=== PATIENT | male | born 1975 | race Caucasian/White ===

== ENCOUNTER 2016-09-14 09:39 | Emergency (ER) | payer OTHER ==
[2016-09-14 10:05] VITALS: BP 133/71
--- NOTE | 2016-09-14 10:45 | UC ---
Iliana Trammell Salem, scribed for Angela Lanier MD on 09/14/16 at 1039 . Psychiatric Complaint HPI - HPI Summary HPI Summary: Patient is a 41 y/o male who presents to the s/p a panic attack since earlier today. He states that he has had a hx of intermittent anxiety for 15 years and has been seeing Dr. Dennis at [facility]. Pt was prescribed Zyprexa x many years with good effect, but reports it is no longer effective. Dr. Dennis recommended that he sees a therapist and while he received a phone call from the therapist, he has not called them back because he did not think it would be helpful. Pt states needs a different medication. Denies self medicating. He states that he has not informed Dr. Dennis of this , but has an appointment to see him on September 22. 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 Episode lasted approximately 30 minutes and he states he feels better now. Pt states that panic attacks have been worsening with time and that he has been having approximately a panic attack a day for the last month. AT time of eval, pt without any complaints - no cp, sob, abd pain, no nausea, He denies missing or any changes in his medication or at work. However, pt states that he has changed to morning shifts at work fall 2015 and has been feeling like he is pulling everyone elses weight. He states that he will consider following up with the therapist, but would like an appointment at [facility] in order to get his medication changed, if it cannot be changed here. Pt denies any other changes to life. Denies substance use. No SI/HI. Pt took Motrin over a month ago for cold sx. Patients medication reviewed this visit. - History Of Current Complaint Chief Complaint: UCAlteredMentalStatus Stated Complaint: ANXIETY-CHANGE MEDS? Time Seen by Provider: 09/14/16 10:14 Hx Obtained From: Patient Onset/Duration: Gradual Onset, Lasting Hours, Still Present Timing: Intermittent Episode Lasting Severity Initially: Moderate Severity Currently: Moderate Character: Anxious Aggravating Factor(s): Nothing Alleviating Factor(s): Nothing Related History: Positive For: Prior Psychiatric Issues - Allergies/Home Medications Allergies/Adverse Reactions: Allergies Allergy/AdvReac Type Severity Reaction Status Date / Time No Known Allergies Allergy Verified 09/14/16 10:05 PMH/Surg Hx/FS Hx/Imm Hx Previously Healthy: No Endocrine History Of: Denies: Diabetes, Thyroid Disease Cardiovascular History Of: Denies: Cardiac Disorders, Hypertension Respiratory History Of: Denies: COPD, Asthma GI/ History Of: Denies: Ulcer Psychological History Of: Reports: Anxiety - Surgical History Surgical History: Yes - Cyst removal from tail bone in 2012. Surgery Procedure, Year, and Place: cyst removed from tailbone. - Family History Known Family History: Negative: Hypertension, Diabetes - Social History Occupation: Employed Full-time Alcohol Use: None Substance Use Type: None, Marijuana - Former - 1 year ago. Smoking Status (MU): Former Smoker Review of Systems Constitutional: Negative Skin: Negative Eyes: Negative ENT: Negative Respiratory: Shortness Of Breath - with panic attack. Cardiovascular: Negative Gastrointestinal: Negative Genitourinary: Negative Motor: Negative Neurovascular: Negative Musculoskeletal: Negative Neurological: Negative Psychological: Anxious - Panic attack - resolved All Other Systems Reviewed And Are Negative: Yes Physical Exam Triage Information Reviewed: Yes Appearance: Well-Appearing, No Pain Distress, Well-Nourished Vital Signs: Initial Vital Signs Temp 98.6 F 09/14/16 09:56 Pulse 72 09/14/16 09:56 Resp 18 09/14/16 09:56 BP 133/71 09/14/16 09:56 Pulse Ox 97 09/14/16 09:56 Vital Signs Reviewed: Yes Eye Exam: Normal Eyes: Positive: Conjunctiva Clear ENT Exam: Normal ENT: Positive: Normal ENT inspection, Hearing grossly normal, Pharynx normal, TMs normal Dental Exam: Normal Neck exam: Normal Neck: Positive: Supple, Nontender, No Lymphadenopathy Respiratory Exam: Normal Respiratory: Positive: Chest non-tender, Lungs clear, Normal breath sounds, No respiratory distress, No accessory muscle use Cardiovascular Exam: Normal Cardiovascular: Positive: RRR, No Murmur, Pulses Normal Abdominal Exam: Normal Abdomen Description: Positive: Nontender, No Organomegaly, Soft Bowel Sounds: Positive: Present Musculoskeletal Exam: Normal Musculoskeletal: Positive: Strength Intact Neurological Exam: Normal Neurological: Positive: Alert, Muscle Tone Normal Psychological Exam: Normal Skin Exam: Normal Psych Complaint Course/Dx - Course Course Of Treatment: Pt presents s/p panic attack - no complaints at present. Pt with increased frequency of anxiety. Pt feels he needs a medication change. Explained ot pt would not change medication through UC - would need to be done with the guidance of his mental health counselor. PT comfortable and in agreement with plan. PT is followed at [facility] - has not called today. I spoke with [facility] - made pt a crisis appt today with Mr. Dick Brandon- pt's counselor. Pt missed appt with Dr. Dennis in August - scheduled in September. Appt 245 today. Pt comfortable and in agreement with plan. PT denies SI/HI. Will discharge to appt. work note - Differential Dx/Diagnosis Provider Diagnoses: anxiety - Physician Notifications Discussed Patient Care With: Mental Health @ 1043. Has an appointment at 1445 today with the counselor he sees there. Pt missed his appointment in August 2016. Discharge - Discharge Plan Condition: Stable Disposition: HOME Patient Education Materials: Anxiety (ED), Panic Attack (ED) Forms: *Work Release Referrals: Drea Ty MD [Primary Care Provider] - Additional Instructions: - stay well hydrated. Drink plenty of non- alcoholic, non-caffinated beverages - get plenty of restful sleep - You have an appointment TODAY at 2:45pm with Mr. Dick Brandon - it is very important that you keep this appointment. You should discuss medication adjustments at this appointment - call 911 or return to the emergency department if you develop any thoughts of hurting yourself or someone else The documentation as recorded by the Iliana hernandez Salem accurately reflects the service I personally performed and the decisions made by me, Angela Lanier MD.
== END 2016-09-14 11:06 | disposition home or self-care (01) ==
LOC: UCEAST 09:39
DX: F41.9 Anxiety disorder, unspecified (principal)
CPT/HCPCS: 99211; G0463

== ENCOUNTER 2018-09-06 22:41 | Emergency (ER) | payer OTHER ==
[2018-09-07] MEDS ORDERED: Meclizine TAB* 12.5 MG PO ONE (01:00)
[2018-09-07 01:08] LABS: ABS Basophils 0 10^3/ul (0-0.2); ABS Eosinophils 0.5 10^3/ul (0-0.6); ABS Lymphocytes 3.1 10^3/ul (1.0-4.8); ABS Monocytes 0.8 10^3/ul (0-0.8); ABS Neutrophils 5.4 10^3/ul (1.5-7.7); ABS Nucleated RBC 0 10^3/ul; Eosinophil % 4.8 %; Hematocrit 44 % (36-46); Hemoglobin 15.1 g/dL (14.0-18.0); Lymphocyte % 31.9 %; Mean Corpuscular HGB Conc 34 g/dL (31-36); Mean Corpuscular Hemoglobin 31 pg (27-31); Mean Corpuscular Volume 90 fL (80-94); Mean Platelet Volume 6.9 fL (7.4-10.4); Nucleated Red Blood Cells % 0.1; Platelet Count 341 10^3/uL (150-450); Red Blood Count 4.91 10^6 /uL (4.18-5.48); Red Cell Distribution Width 13 % (10.5-15); White Blood Count 9.8 10^3/uL (3.5-10.8)
[2018-09-07 01:11] LABS: Albumin 4.5 g/dL (3.2-5.2); Albumin/Globulin Ratio 1.7 (1-3); BUN/Creatinine Ratio 11.6 (8-20); Calcium 9.8 mg/dL (8.6-10.3); EGFR African American 105.7 (>60); EGFR Non-African American 87.4 (>60); Globulin 2.7 g/dL (2-4); Potassium 3.6 mmol/L (3.5-5.0); Total Bilirubin 0.4 mg/dL (0.2-1.0); Total Protein 7.2 g/dL (6.4-8.9)
--- NOTE | 2018-09-07 01:51 | ED ---
Dizziness - HPI Summary HPI Summary: The patient is a 43 year old male who is presenting to the [facility] with c/o of dizziness and lightheadedness. The patient denies room spinning characteristic of the dizziness episode and states that dizziness spell was more similar to a near-syncopal episode. He describes this episode, one in which he almost passed out. The duration of the symptoms have been nearly 3 weeks. Patient had previously seen his primary care physician for similar symptoms and states that he had been diagnosed with vertigo and was given Meclizine. The medicine did alleviate the symptoms. He had stopped taking the medication after a few days due to the reported drowsiness he felt after taking the medication for a few days. Patient also has PMHx of anxiety and depression. Patient also reports of chest pain that is on the left side which have been occurring for the past few days and the last episode of the chest pain was yesterday afternoon. - History Of Current Complaint Chief Complaint: EDDizziness Stated Complaint: LIGHT HEADED, CHEST PAIN PER PT Time Seen by Provider: 09/07/18 00:48 Hx Obtained From: Patient Character: Lightheaded, Dizzy Aggravating Factor(s): Nothing Alleviating Factor(s): Nothing Associated Signs And Symptoms: Positive: Chest Pain - Allergies/Home Medications Allergies/Adverse Reactions: Allergies Allergy/AdvReac Type Severity Reaction Status Date / Time No Known Allergies Allergy Verified 09/06/18 22:48 PMH/Surg Hx/FS Hx/Imm Hx Endocrine/Hematology History: Denies: Hx Diabetes, Hx Thyroid Disease Cardiovascular History: Denies: Hx Hypertension Respiratory History: Denies: Hx Asthma, Hx Chronic Obstructive Pulmonary Disease (COPD) GI History: Denies: Hx Ulcer Psychiatric History: Reports: Hx Anxiety - Surgical History Surgery Procedure, Year, and Place: cyst removed from tailbone. Infectious Disease History: No Infectious Disease History: Denies: Hx Clostridium Difficile, Hx Hepatitis, Hx Human Immunodeficiency Virus (HIV), Hx of Known/Suspected MRSA, Hx Shingles, Hx Tuberculosis, Hx Known/ Suspected VRE, Traveled Outside the [place] in Last 30 Days - Family History Known Family History: Negative: Hypertension, Diabetes - Social History Alcohol Use: None Substance Use Type: Reports: None Smoking Status (MU): Former Smoker Review of Systems Constitutional: Negative Eyes: Negative ENT: Negative Positive: Chest Pain Respiratory: Negative Gastrointestinal: Negative Genitourinary: Negative Musculoskeletal: Negative Skin: Negative Neurological: Other - lightheadedness; and dizziness Psychological: Normal All Other Systems Reviewed And Are Negative: Yes Physical Exam - Summary Physical Exam Summary: VITAL SIGNS: Reviewed. GENERAL: Patient is a well-developed and nourished (MALE) who is lying comfortable in the stretcher. Patient is not in any acute respiratory distress. HEAD AND FACE: No signs of trauma. No ecchymosis, hematomas or skull depressions. No sinus tenderness. EYES: PERRLA, EOMI x 2, No injected conjunctiva, no nystagmus. EARS: Hearing grossly intact. Ear canals and tympanic membranes are within normal limits. MOUTH: Oropharynx within normal limits. NECK: Supple, trachea is midline, no adenopathy, no JVD, no carotid bruit, no c- spine tenderness, neck with full ROM. CHEST: Symmetric, no tenderness at palpation LUNGS: Clear to auscultation bilaterally. No wheezing or crackles. CVS: Regular rate and rhythm, S1 and S2 present, no murmurs or gallops appreciated. ABDOMEN: Soft, non-tender. No signs of distention. No rebound no guarding, and no masses palpated. Bowel sounds are normal. EXTREMITIES: FROM in all major joints, no edema, no cyanosis or clubbing. NEURO: Alert and oriented x 3. No acute neurological deficits. Speech is normal and follows commands. SKIN: Dry and warm Triage Information Reviewed: Yes Vital Signs On Initial Exam: Initial Vitals Temp Pulse Resp BP Pulse Ox 36.4 C 72 19 139/80 99 09/06/18 22:44 09/06/18 22:44 09/06/18 22:44 09/06/18 22:44 09/06/18 22:44 Vital Signs Reviewed: Yes Diagnostics - Vital Signs Vital Signs Temp Pulse Resp BP Pulse Ox 09/06/18 22:44 36.4 C 72 19 139/80 99 - Laboratory Lab Results: Lab Results 09/07/18 09/07/18 Range/Units 00:31 00:32 WBC 9.8 (3.5-10.8) 10^3/uL RBC 4.91 (4.18-5.48) 10^6 /uL Hgb 15.1 (14.0-18.0) g/dL Hct 44 (36-46) % MCV 90 (80-94) fL MCH 31 (27-31) pg MCHC 34 (31-36) g/dL RDW 13 (10.5-15) % Plt Count 341 (150-450) 10^3/uL MPV 6.9 L (7.4-10.4) fL Neut % (Auto) 55.3 % Lymph % (Auto) 31.9 % [place] % (Auto) 7.6 % Eos % (Auto) 4.8 % Baso % (Auto) 0.4 % Absolute Neuts (auto) 5.4 (1.5-7.7) 10^3/ul Absolute Lymphs (auto) 3.1 (1.0-4.8) 10^3/ul Absolute Monos (auto) 0.8 (0-0.8) 10^3/ul Absolute Eos (auto) 0.5 (0-0.6) 10^3/ul Absolute Basos (auto) 0 (0-0.2) 10^3/ul Absolute Nucleated RBC 0 10^3/ul Nucleated RBC % 0.1 Sodium 139 (135-145) mmol/L Potassium 3.6 (3.5-5.0) mmol/L Chloride 101 (101-111) mmol/L Carbon Dioxide 33 H (22-32) mmol/L Anion Gap 5 (2-11) mmol/L BUN 11 (6-24) mg/dL Creatinine 0.95 (0.67-1.17) mg/dL Est GFR ( Amer) 105.7 (>60) Est GFR (Non-Af Amer) 87.4 (>60) BUN/Creatinine Ratio 11.6 (8-20) Glucose 77 (70-100) mg/dL Calcium 9.8 (8.6-10.3) mg/dL Total Bilirubin 0.40 (0.2-1.0) mg/dL AST 24 (13-39) U/L ALT 24 (7-52) U/L Alkaline Phosphatase 67 (34-104) U/L Total Protein 7.2 (6.4-8.9) g/dL Albumin 4.5 (3.2-5.2) g/dL Globulin 2.7 (2-4) g/dL Albumin/Globulin Ratio 1.7 (1-3) Result Diagrams: 09/07/18 00:31 09/07/18 00:32 Lab Statement: Any lab studies that have been ordered have been reviewed, and results considered in the medical decision making process. - EKG 0109 EKG Rhythm: Sinus Rhythm - 70 bpm Summary of EKG Findings: An EKG at 0109 reveals sinus 70 bpm. Normal axis; Normal intervals; No ischemic changes. Dizzy Course/Dx - Course Course Of Treatment: The patient is a 43 year old male who is presenting to the [facility] with c/o of dizziness and lightheadedness. The patient was given an EKG in the [facility]. We reviewed his lab work and blood work as well. Antivert has been taken 3 weeks ago which had improved his symptoms, but the patient had stopped taking the antivert due to a reported drowsiness. Patient was given Antivert in the [facility] and he reports feeling better. The patient will be discharged with a dx of dizziness. We recommended taking antivert as needed. - Diagnoses Provider Diagnoses: Dizziness Discharge - Sign-Out/Discharge Documenting (check all that apply): Patient Departure - discharge Home Patient Received Moderate/Deep Sedation with Procedure: No - Discharge Plan Condition: Stable Disposition: HOME Patient Education Materials: Vertigo (ED) Referrals: Truman BAER,Balbir Rehman [Primary Care Provider] - 1 Day Additional Instructions: Continue Antivert as needed for dizziness. - Attestation Statements Document Initiated by Scribe: Yes Documenting Scribe: Shane Contreras Provider For Whom Scribe is Documenting (Include Credential): Dr. Juventino Jo Scribe Attestation: Shane Trammell, scribed for Dr. Juventino Jo on 09/07/18 at 0517. Status of Scribe Document: Ready
[2018-09-07 03:46] VITALS: BP 119/78
== END 2018-09-07 03:46 | disposition home or self-care (01) ==
LOC: ED 22:41
DX: R42 Dizziness and giddiness (principal); Z87.891 Personal history of nicotine dependence
CPT/HCPCS: 36415; 80053; 85025; 93005; 99282; A9270-GY

== ENCOUNTER 2019-06-26 10:57 | Emergency (ER) | payer OTHER ==
[2019-06-26 11:39] LABS: ABS Eosinophils 0.1 10^3/ul (0-0.6); ABS Lymphocytes 1.9 10^3/ul (1.0-4.8); ABS Monocytes 0.7 10^3/ul (0-0.8); Eosinophil % 0.5 %; Hematocrit 45 % (42-52); Hemoglobin 15.4 g/dL (14.0-18.0); Lymphocyte % 18.1 %; Mean Corpuscular HGB Conc 34 g/dL (31-36); Mean Corpuscular Hemoglobin 31 pg (27-31); Mean Corpuscular Volume 92 fL (80-94); Mean Platelet Volume 6.7 fL (7.4-10.4); Nucleated Red Blood Cells % 0.1; Platelet Count 327 10^3/uL (150-450); Red Blood Count 4.91 10^6 /uL (4.18-5.48); Red Cell Distribution Width 14 % (10-15); White Blood Count 10.7 10^3/uL (3.5-10.8)
[2019-06-26 11:58] LABS: Albumin 4.7 g/dL (3.2-5.2); Albumin/Globulin Ratio 1.6 (1-3); BUN/Creatinine Ratio 12.2 (8-20); Calcium 9.6 mg/dL (8.6-10.3); EGFR Non-African American 92.5 (>60); Potassium 3.8 mmol/L (3.5-5.0); Total Bilirubin 0.7 mg/dL (0.2-1.0); Total Protein 7.7 g/dL (6.4-8.9)
--- NOTE | 2019-06-26 15:27 | ED ---
Abdominal Pain/Male - HPI Summary HPI Summary: The patient is a 44 year-old male presenting to [facility] with a chief complaint of LLQ and suprapubic abdominal pain onset yesterday. He reports lower abdominal pain worst in the LLQ that radiates into the groin and testicles. The aching pain is rated /10 in severity, and is aggravated with bending. He endorses subjective fever, diaphoresis, and nausea. He denies any vomiting, diarrhea, hematochezia, back pain, dysuria, burning with urination, or swelling or erythema of the scrotum. Symptoms currently rated 5/10 in severity. His last BM was yesterday and it was normal. No history of abdominal surgeries. Past medical history significant for cyst on tailbone. Former smoker, no EtOH, no substance use. Medications reviewed. Allergies noted. - History of Current Complaint Chief Complaint: EDAbdPain Stated Complaint: STOMACH PAIN PER PT Time Seen by Provider: 06/26/19 15:20 Hx Obtained From: Patient Onset/Duration: Lasting Hours, Still Present Timing: Constant Severity Initially: Mild Severity Currently: Moderate Pain Intensity: 5 Pain Scale Used: 0-10 Numeric Location: Discrete At: LLQ, Suprapubic Radiates: Yes Radiates to: Inguinal, Other - testicles Aggravating Factor(s): Movement - bending Alleviating Factor(s): Nothing Associated Signs And Symptoms: Positive: Diaphoresis, Fever, Nausea. Negative: Blood in Stool, Urinary Symptoms, Vomiting, Diarrhea, Other - scrotal swelling or redness - Allergies/Home Medications Allergies/Adverse Reactions: Allergies Allergy/AdvReac Type Severity Reaction Status Date / Time No Known Allergies Allergy Verified 09/06/18 22:48 Home Medications: Home Medications ClomiPRAMINE (NF) [Clomipramine (NF)] 150 mg PO BEDTIME 06/26/19 [History Confirmed 06/26/19] Escitalopram * [Lexapro *] 20 mg PO BEDTIME 06/26/19 [History Confirmed 06/26/19 ] Montelukast Sodium TAB* [Singulair TAB*] 10 mg PO DAILY 06/26/19 [History Confirmed 06/26/19] OLANzapine TAB* [Zyprexa 10 MG TAB*] 10 mg PO BEDTIME 06/26/19 [History Confirmed 06/26/19] clonazePAM TAB(*) [KlonoPIN TAB(*)] 0.25 - 0.5 mg PO TID PRN 06/26/19 [History Confirmed 06/26/19] PMH/Surg Hx/FS Hx/Imm Hx Endocrine/Hematology History: Denies: Hx Diabetes, Hx Thyroid Disease Cardiovascular History: Denies: Hx Hypertension Respiratory History: Denies: Hx Asthma, Hx Chronic Obstructive Pulmonary Disease (COPD) GI History: Denies: Hx Ulcer Psychiatric History: Reports: Hx Anxiety - Surgical History Surgical History: Yes Surgery Procedure, Year, and Place: cyst removed from tailbone. Infectious Disease History: No Infectious Disease History: Denies: Hx Clostridium Difficile, Hx Hepatitis, Hx Human Immunodeficiency Virus (HIV), Hx of Known/Suspected MRSA, Hx Shingles, Hx Tuberculosis, Hx Known/ Suspected VRE, Traveled Outside the [place] in Last 30 Days - Family History Known Family History: Negative: Hypertension, Diabetes - Social History Alcohol Use: None Hx Substance Use: No Substance Use Type: Reports: None Hx Tobacco Use: Yes Smoking Status (MU): Former Smoker Review of Systems Positive: Skin Diaphoresis Positive: Abdominal Pain - LLQ and suprapubic, Nausea. Negative: Vomiting, Diarrhea, Other - hematochezia Positive: pain - groin pain radiating into testicles. Negative: burning, dysuria, other - scrotal swelling or erythema Negative: Myalgia - back All Other Systems Reviewed And Are Negative: Yes Physical Exam - Summary Physical Exam Summary: Constitutional: Well-developed, Well-nourished, Alert. (-) Distressed Skin: Warm, Dry HENT: Normocephalic; Atraumatic Eyes: Conjunctiva normal Neck: Musculoskeletal ROM normal neck. (-) JVD, (-) Stridor, (-) Tracheal deviation Cardio: Rhythm regular, rate normal, Heart sounds normal; Intact distal pulses; The pedal pulses are 2+ and symmetric. Radial pulses are 2+ and symmetric. (-) Murmur Pulmonary/Chest wall: Effort normal. (-) Respiratory distress, (-) Wheezes, (-) Rales Abd: Soft, (+) Mild tenderness of the suprapubic region/LLQ, (-) Flank tenderness, (-) Distension, (-) Guarding, (-) Rebound Musculoskeletal: (-) Edema Lymph: (-) Cervical adenopathy Neuro: Alert, Oriented x3 Psych: Mood and affect Normal Triage Information Reviewed: Yes Vital Signs On Initial Exam: Initial Vitals Temp Pulse Resp BP Pulse Ox 98.4 F 84 18 144/86 98 06/26/19 10:59 06/26/19 10:59 06/26/19 10:59 06/26/19 10:59 06/26/19 10:59 Vital Signs Reviewed: Yes Procedures - Sedation Patient Received Moderate/Deep Sedation with Procedure: No Diagnostics - Vital Signs Vital Signs Temp Pulse Resp BP Pulse Ox 06/26/19 12:53 99.9 F 82 18 134/77 98 06/26/19 10:59 98.4 F 84 18 144/86 98 - Laboratory Lab Results: Lab Results 06/26/19 06/26/19 Range/Units 11:31 11:31 WBC 10.7 (3.5-10.8) 10^3/uL RBC 4.91 (4.18-5.48) 10^6 /uL Hgb 15.4 (14.0-18.0) g/dL Hct 45 (42-52) % MCV 92 (80-94) fL MCH 31 (27-31) pg MCHC 34 (31-36) g/dL RDW 14 (10-15) % Plt Count 327 (150-450) 10^3/uL MPV 6.7 L (7.4-10.4) fL Neut % (Auto) 74.3 % Lymph % (Auto) 18.1 % [place] % (Auto) 6.7 % Eos % (Auto) 0.5 % Baso % (Auto) 0.4 % Absolute Neuts (auto) 8.0 H (1.5-7.7) 10^3/ul Absolute Lymphs (auto) 1.9 (1.0-4.8) 10^3/ul Absolute Monos (auto) 0.7 (0-0.8) 10^3/ul Absolute Eos (auto) 0.1 (0-0.6) 10^3/ul Absolute Basos (auto) 0.0 (0-0.2) 10^3/ul Absolute Nucleated RBC 0.0 10^3/ul Nucleated RBC % 0.1 Sodium 137 (135-145) mmol/L Potassium 3.8 (3.5-5.0) mmol/L Chloride 100 L (101-111) mmol/L Carbon Dioxide 31 (22-32) mmol/L Anion Gap 6 (2-11) mmol/L BUN 11 (6-24) mg/dL Creatinine 0.90 (0.67-1.17) mg/dL Est GFR ( Amer) 112.0 (>60) Est GFR (Non-Af Amer) 92.5 (>60) BUN/Creatinine Ratio 12.2 (8-20) Glucose 98 (70-100) mg/dL Calcium 9.6 (8.6-10.3) mg/dL Total Bilirubin 0.70 (0.2-1.0) mg/dL AST 27 (13-39) U/L ALT 20 (7-52) U/L Alkaline Phosphatase 66 (34-104) U/L Total Protein 7.7 (6.4-8.9) g/dL Albumin 4.7 (3.2-5.2) g/dL Globulin 3.0 (2-4) g/dL Albumin/Globulin Ratio 1.6 (1-3) Result Diagrams: 06/26/19 11:31 06/26/19 11:31 Lab Statement: Any lab studies that have been ordered have been reviewed, and results considered in the medical decision making process. - CT Abd/Pel CT CT Interpretation Completed By: Radiologist Summary of CT Findings: Impression: 1. Subtle uncomplicated diverticulitis of the descending colon is suspected. 2. Equivocal hypodensity in the dome of the liver is statistically benign but could be better evaluated by ultrasound. ED physician has reviewed this report. Re-Evaluation - Re-Evaluation First Eval Re-Evaluation Time: 17:00 Comment: We discussed results and plan for discharge following Zosyn. Abdominal Pain Male Course/Dx - Course Course Of Treatment: Patient is a 44 year-old male presenting with LLQ and suprapubic pain radiating into the groin and testicles onset yesterday and accompanied by subjective fever, diaphoresis, and nausea. He denies any urinary symptoms or swelling or erythema of the scrotum. Physical exam significant for mild tenderness of the suprapubic region/LLQ without any flank tenderness, abdomen is otherwise soft and distended. IV access obtained. Patient administered fluids 2L and Toradol. Blood work obtained with results within normal limits. UA obtained to reveal 2+ ketones, trace leukocyte esterase, 1+ WBCs, 1+ RBCs, and presence of squamous epithelial cells. Abd/Pel CT impression reveals diverticulitis of the descending colon. Patient administered Zosyn prior to discharge. Patient given rx for Augmentin. Patient agreeable with plan. - Diagnoses Provider Diagnoses: Diverticulitis Discharge ED - Sign-Out/Discharge Documenting (check all that apply): Patient Departure - Patient will be discharged home. - Discharge Plan Condition: Stable Disposition: HOME Prescriptions: Amoxicillin/Clavulanate TAB* [Augmentin TAB 875*] 875 mg PO TID #30 tab Patient Education Materials: Diverticulitis (ED) Forms: *Work Release Referrals: Truman BAER,Balbir Rehman [Primary Care Provider] - 3 Days Additional Instructions: Please take medications as prescribed. Follow up with your primary care provider in 2-3 days. Return to the emergency department for any new or worsening symptoms. - Billing Disposition and Condition Condition: STABLE Disposition: Home - Attestation Statements Document Initiated by Deon: Yes Documenting Scribe: Franny Sharma Provider For Whom Deon is Documenting (Include Credential): Dr. Marito Garcia DO Scribe Attestation: Franny Trammell scribed for Dr. Marito Garcia DO on 06/26/19 at 1754. Scribe Documentation Reviewed: Yes Provider Attestation: The documentation as recorded by the Franny hernandez accurately reflects the service I personally performed and the decisions made by me, Dr. Marito Garcia DO Status of Scribdenia Document: Viewed
[2019-06-26] MEDS ORDERED: NS 0.9% 1000 ML** 1,000 ML IV ONE ×2 (15:28→16:23)
[2019-06-26] MEDS ORDERED: Ketorolac INJ* 30 MG/ML 1 ML VIAL IV PUSH ONE (15:28)
[2019-06-26] MEDS ORDERED: Iohexol 300* (CONTRAST) 10 ML SDV IV ONE (15:34)
[2019-06-26] MEDS ORDERED: Piperacillin/Tazobac ADVAN(*) 3.375 GM in NS 0.9% 100 ML* 100 ML IVPB ONE (16:23)
[2019-06-26 16:35] LABS: Urine Appearance Clear; Urine Bilirubin Negative (Negative); Urine Blood Negative (Negative); Urine Color Yellow; Urine Glucose Negative (Negative); Urine Ketones 2+ (Negative); Urine Nitrite Negative (Negative); Urine Protein Negative (Negative); Urine Urobilinogen Negative (Negative)
[2019-06-26 16:39] LABS: C Reactive Protein 2.4 mg/L (<8.01)
[2019-06-26 16:43] LABS: Urine Bacteria Absent (Absent); Urine Red Blood Cell 1+(3-5/hpf) (Absent); Urine Squamous Epithelial Cell Present (Absent); Urine White Blood Cell 1+(6-10/hpf) (Absent)
[2019-06-26 18:04] VITALS: BP 130/84
[2019-06-26 20:40] LABS: Erythrocyte Sed Rate 1 mm/Hr (0-14)
== END 2019-06-26 18:03 | disposition home or self-care (01) ==
LOC: ED 10:57
DX: K57.32 Diverticulitis of large intestine without perforation or abscess without bleeding (principal); F41.9 Anxiety disorder, unspecified; Z87.891 Personal history of nicotine dependence; Z79.899 Other long term (current) drug therapy
CPT/HCPCS: 36415; 74177; 80053; 81003; 81015; 85025; 85652; 86140; 87086; 96361; 96365; 96375; 99283; J1885; J2543; Q9967

== ENCOUNTER 2021-05-14 17:24 | Inpatient (IN) ==
[2021-05-14 18:40] LABS: ABS Eosinophils 0.2 10^3/ul (0-0.6); ABS Lymphocytes 1.6 10^3/ul (1.0-4.8); ABS Monocytes 0.6 10^3/ul (0-0.8); ABS Neutrophils 2.7 10^3/ul (1.5-7.7); Eosinophil % 4.9 %; Hematocrit 41 % (42-52); Lymphocyte % 30.8 %; Mean Corpuscular HGB Conc 34 g/dL (31-36); Mean Corpuscular Hemoglobin 32 pg (27-31); Mean Corpuscular Volume 94 fL (80-94); Mean Platelet Volume 7.6 fL (7.4-10.4); Platelet Count 204 10^3/uL (150-450); Red Blood Count 4.36 10^6 /uL (4.18-5.48); Red Cell Distribution Width 14 % (10-15); White Blood Count 5.1 10^3/uL (3.5-10.8)
[2021-05-14 19:03] LABS: ALT 15 U/L (7-52); AST 11 U/L (13-39); Albumin/Globulin Ratio 1.5 (1-3); Alkaline Phosphatase 44 U/L (35-149); Anion Gap 2 mmol/L (2-11); Blood Urea Nitrogen 12 mg/dL (6-24); CO2 Carbon Dioxide 33 mmol/L (22-32); Calcium 8.9 mg/dL (8.6-10.3); Chloride 105 mmol/L (101-111); Globulin 2.6 g/dL (2-4); Glucose 98 mg/dL (70-100); Potassium 3.8 mmol/L (3.5-5.0); Sodium 140 mmol/L (135-145); Total Protein 6.6 g/dL (6.4-8.9)
[2021-05-14 19:16] LABS: Acetaminophen < 15 mcg/mL; Alcohol, S < 13 mg/dL (<13); Salicylate < 2.50 mg/dL (<30)
[2021-05-14 19:30] LABS: TSH Ultra Thyroid Stim Horm 3.62 mcIU/mL (0.34-5.60)
[2021-05-14 21:03] LABS: Urine Benzodiazepine Screen None Detected (None Detect); Urine Cannabinoids Screen Presumptive Positive (None Detect); Urine Opiates Screen None Detected (None Detect)
[2021-05-14] MEDS ORDERED: Nicotine GUM 2MG FRUIT FLAVOR PO PRN (23:00)
[2021-05-14] MEDS ORDERED: Al Hydrox/Mg Hydrox/Simet LIQ 30 ML UDC PO PRN (23:56)
[2021-05-15] MEDS: Nicotine PATCH 21 MG/24 HR PATCH TRANSDERM SCH (07:03)
[2021-05-15 08:53] LABS: HDL Cholesterol 52.8 mg/dL
[2021-05-15] MEDS: Vitamin THERAPEUTIC TAB PO SCH (11:05)
[2021-05-16] MEDS: Vitamin THERAPEUTIC TAB PO SCH (08:54)
[2021-05-16] MEDS: Nicotine PATCH 21 MG/24 HR PATCH TRANSDERM SCH (08:54)
[2021-05-17] MEDS: Nicotine PATCH 21 MG/24 HR PATCH TRANSDERM SCH (09:26)
[2021-05-17] MEDS: Vitamin THERAPEUTIC TAB PO SCH (09:26)
[2021-05-18] MEDS: Vitamin THERAPEUTIC TAB PO SCH (08:34)
[2021-05-18] MEDS: Nicotine PATCH 21 MG/24 HR PATCH TRANSDERM SCH (08:35)
[2021-05-19] MEDS: Vitamin THERAPEUTIC TAB PO SCH (07:46)
[2021-05-19] MEDS: Nicotine PATCH 21 MG/24 HR PATCH TRANSDERM SCH (07:49)
[2021-05-19 10:02] VITALS: BP 125/83
== END 2021-05-19 19:00 | disposition home or self-care (01) | DRG 885 ==
LOC: ED 17:24 → BSU 22:23
PROVIDERS: ADMIT Psychiatry & Neurology Psychiatry; ATTEND Psychiatry & Neurology Psychiatry

== ENCOUNTER 2024-01-19 08:22 | Observation (INO) ==
[2024-01-19] MEDS ORDERED: LORazepam 2 mg VIAL 1 ml ONE (08:41)
[2024-01-19] MEDS ORDERED: Lorazepam PYXIS KEY PRN ×2 (08:42→08:48)
[2024-01-19] MEDS ORDERED: levETIRAcetam 1000MG IVPREMIX 1,000 MG/100 ML BAG ONE (08:46)
[2024-01-19] MEDS: levETIRAcetam 1000MG IVPREMIX 1,000 MG/100 ML BAG IVPB ONE (08:51)
[2024-01-19] MEDS: LORazepam 2 mg VIAL 1 ml IV PUSH ONE (08:51)
[2024-01-19] MEDS: Lactated Ringers 1000 ml BAG IV.FLUID IV ONE (09:07)
[2024-01-19 09:24] LABS: ABS Lymphocytes 1.1 10^3/uL (1.0-4.8); ABS Monocytes 0.5 10^3/uL (0.0-1.1); ABS Neutrophils 8.9 10^3/uL (1.5-7.6); ABS Nucleated RBC 0.01 10^3/ul; Eosinophil % 0.2 %; Hematocrit 44.4 % (38-53); Hemoglobin 14.9 g/dL (13.2-16.3); Lymphocyte % 10.5 %; Mean Corpuscular Hemoglobin 31.6 pg (27-33); Mean Corpuscular Hgb Conc 33.6 g/dL (31-36); Mean Corpuscular Volume 94.2 fL (80-97); Mean Platelet Volume 7.8 fL (7.5-11.2); Nucleated Red Blood Cells % 0.1 %/100WBC (0.0-0.8); Platelet Count 307 10^3/uL (150-450); Red Blood Count 4.71 10^6/uL (4.06-5.63); Red Cell Distribution Width 13.5 % (12-17); White Blood Count 10.5 10^3/uL (3.6-10.2)
[2024-01-19 09:45] LABS: High Sens Troponin Baseline 3 pg/mL (<20)
[2024-01-19 10:16] LABS: ALT 11 U/L (7-52); AST 17 U/L (13-39); Albumin 4.5 g/dL (3.2-5.2); Albumin/Globulin Ratio 1.8 (1-3); Alkaline Phosphatase 55 U/L (35-149); Anion Gap 20 mmol/L (2-16); Blood Urea Nitrogen 6 mg/dL (6-24); C Reactive Protein < 1.00 mg/L (<8.01); CO2 Carbon Dioxide 18 mmol/L (22-32); Chloride 99 mmol/L (101-111); Globulin 2.5 g/dL (2-4); Glucose 129 mg/dL (70-100); Magnesium 1.8 mg/dL (1.9-2.7); Phosphorus 3.7 mg/dL (2.5-5.0); Sodium 137 mmol/L (135-145); Total Bilirubin 0.5 mg/dL (0.2-1.0); eGFR CKD-EPI 110.5 (>60)
[2024-01-19 10:56] LABS: Urine Appearance Clear; Urine Bilirubin Negative (Negative); Urine Blood Negative (Negative); Urine Color Light-Yellow; Urine Glucose Negative (Negative); Urine Ketones 2+ (Negative); Urine Nitrite Negative (Negative); Urine Protein Trace (Negative); Urine Specific Gravity 1.017 (1.002-1.030); Urine Urobilinogen Negative (Negative); Urine pH 5.5 (5.0-8.0)
[2024-01-19 11:02] LABS: High Sensitivity Troponin 1 Hr 5 pg/mL (<20)
[2024-01-19 11:21] LABS: Urine Benzodiazepine Screen Presumptive Positive (None Detect); Urine Cannabinoids Screen Presumptive Positive (None Detect); Urine Opiates Screen None Detected (None Detect)
[2024-01-19] MEDS: Magnesium Sulfate 2 gm BAG 2 GM/50 ML BAG IVPB ONE (11:27)
[2024-01-19] MEDS: LORazepam 2 mg VIAL 1 ml IM ONE (14:50)
[2024-01-19] MEDS: Enoxaparin 40 MG/0.4 ML SYR SUBCUT SCH (21:59)
[2024-01-20 05:36] LABS: Hemoglobin 13.8 g/dL (13.2-16.3); Mean Corpuscular Hgb Conc 33.6 g/dL (31-36); Mean Corpuscular Volume 92.3 fL (80-97); Mean Platelet Volume 7.7 fL (7.5-11.2); Platelet Count 274 10^3/uL (150-450); Red Blood Count 4.44 10^6/uL (4.06-5.63); Red Cell Distribution Width 13.9 % (12-17); White Blood Count 11.6 10^3/uL (3.6-10.2)
[2024-01-20 06:11] LABS: Albumin/Globulin Ratio 1.8 (1-3); Calcium 8.6 mg/dL (8.6-10.3); Creatinine, Serum 0.75 mg/dL (0.67-1.17); Globulin 2.2 g/dL (2-4); Potassium 3.8 mmol/L (3.5-5.0); Total Bilirubin 0.7 mg/dL (0.2-1.0); Total Protein 6.2 g/dL (6.4-8.9); eGFR CKD-EPI 112.7 (>60)
[2024-01-20 09:45] VITALS: BP 114/69
== END 2024-01-20 14:05 | disposition home or self-care (01) ==
LOC: ED 08:22 → EDHOLD 11:46 → INTOOBSV 11:46 → MED 13:57
PROVIDERS: ADMIT Hospitalist; ATTEND Hospitalist

== ENCOUNTER 2024-02-04 07:30 | Inpatient (IN) ==
[2024-02-04 09:05] LABS: Hematocrit 42.6 % (38-53); Hemoglobin 14.9 g/dL (13.2-16.3); Mean Corpuscular Hemoglobin 32.5 pg (27-33); Mean Corpuscular Hgb Conc 34.9 g/dL (31-36); Mean Corpuscular Volume 93.2 fL (80-97); Mean Platelet Volume 8.7 fL (7.5-11.2); Platelet Count 260 10^3/uL (150-450); Red Blood Count 4.58 10^6/uL (4.06-5.63); White Blood Count 10.9 10^3/uL (3.6-10.2)
[2024-02-04 09:11] LABS: Urine Appearance Clear; Urine Bilirubin Negative (Negative); Urine Blood Negative (Negative); Urine Color Yellow; Urine Glucose Negative (Negative); Urine Ketones 1+ (Negative); Urine Nitrite Negative (Negative); Urine Protein Trace (Negative); Urine Specific Gravity 1.031 (1.002-1.030); Urine Urobilinogen Negative (Negative); Urine pH 6.5 (5.0-8.0)
[2024-02-04 09:23] LABS: ALT 7 U/L (7-52); AST 12 U/L (13-39); Acetaminophen < 15 mcg/mL; Albumin 4.8 g/dL (3.2-5.2); Albumin/Globulin Ratio 1.9 (1-3); Alcohol, S < 13 mg/dL (<13); Alkaline Phosphatase 53 U/L (35-149); Anion Gap 9 mmol/L (2-16); Blood Urea Nitrogen 16 mg/dL (6-24); CO2 Carbon Dioxide 30 mmol/L (22-32); Calcium 9.8 mg/dL (8.6-10.3); Chloride 101 mmol/L (101-111); Creatinine, Serum 0.79 mg/dL (0.67-1.17); Globulin 2.5 g/dL (2-4); Glucose 102 mg/dL (70-100); Potassium 5.1 mmol/L (3.5-5.0); Salicylate < 2.50 mg/dL (<30); Sodium 140 mmol/L (135-145); Total Bilirubin 0.5 mg/dL (0.2-1.0); Total Protein 7.3 g/dL (6.4-8.9)
[2024-02-04 09:25] LABS: Urine Benzodiazepine Screen Presumptive Positive (None Detect); Urine Cannabinoids Screen Presumptive Positive (None Detect); Urine Opiates Screen None Detected (None Detect)
[2024-02-04 09:38] LABS: TSH Ultra Thyroid Stim Horm 1.88 mcIU/mL (0.34-5.60)
[2024-02-04 09:52] LABS: ABS Basophils 0.1 10^3/uL (0.0-0.1); ABS Eosinophils 0.1 10^3/uL (0.0-0.5); ABS Lymphocytes 1.7 10^3/uL (1.0-4.8); ABS Monocytes 0.8 10^3/uL (0.0-1.1); ABS Neutrophils 8.3 10^3/uL (1.5-7.6); Eosinophil % 1.2 %; Lymphocyte % 15.3 %; RBC Morphology Normal (Normal)
[2024-02-04 16:24] VITALS: BP 152/83
[2024-02-04] MEDS ORDERED: Al Hydrox/Mg Hydrox/Simet LIQ 30 ML UDC PO PRN (17:27)
[2024-02-05] MEDS ORDERED: Vitamin THERAPEUTIC TAB PO SCH (09:00)
== END 2024-02-05 04:10 | disposition other institution (70) | DRG 885 ==
LOC: ED 07:30 → BSU 14:06
PROVIDERS: ADMIT Psychiatry & Neurology Psychiatry; ATTEND Psychiatry & Neurology Psychiatry

== ENCOUNTER 2024-02-05 04:29 | Inpatient (IN) ==
[2024-02-05 04:53] LABS: Hematocrit 41.3 % (38-53); Hemoglobin 13.8 g/dL (13.2-16.3); Mean Corpuscular Hemoglobin 31.2 pg (27-33); Mean Corpuscular Hgb Conc 33.4 g/dL (31-36); Mean Corpuscular Volume 93.4 fL (80-97); Platelet Count 254 10^3/uL (150-450); Red Blood Count 4.43 10^6/uL (4.06-5.63); Red Cell Distribution Width 13.2 % (12-17); White Blood Count 9.3 10^3/uL (3.6-10.2)
[2024-02-05 05:36] LABS: ALT 7 U/L (7-52); AST 11 U/L (13-39); Albumin 4.2 g/dL (3.2-5.2); Alcohol, S < 13 mg/dL (<13); Alkaline Phosphatase 47 U/L (35-149); Anion Gap 6 mmol/L (2-16); Blood Urea Nitrogen 13 mg/dL (6-24); CO2 Carbon Dioxide 30 mmol/L (22-32); Calcium 9.6 mg/dL (8.6-10.3); Chloride 105 mmol/L (101-111); Creatinine, Serum 0.72 mg/dL (0.67-1.17); Globulin 2.1 g/dL (2-4); Glucose 111 mg/dL (70-100); Potassium 3.7 mmol/L (3.5-5.0); Sodium 141 mmol/L (135-145); Total Bilirubin 0.4 mg/dL (0.2-1.0); Total Protein 6.3 g/dL (6.4-8.9); eGFR CKD-EPI 114.1 (>60)
[2024-02-05 06:53] LABS: ABS Basophils 0.1 10^3/uL (0.0-0.1); ABS Eosinophils 0.2 10^3/uL (0.0-0.5); ABS Lymphocytes 2.6 10^3/uL (1.0-4.8); ABS Monocytes 0.8 10^3/uL (0.0-1.1); ABS Neutrophils 5.5 10^3/uL (1.5-7.6); Eosinophil % 2.6 %; Lymphocyte % 27.8 %; RBC Morphology Normal (Normal)
[2024-02-05 13:02] LABS: Prolactin 13.3 ng/mL (1.0-20.0)
[2024-02-06 08:18] LABS: HDL Cholesterol 50.4 mg/dL
[2024-02-07] MEDS ORDERED: Dextran 70/Hypromellose Tears Eye Drops 15 ml BTL (for Artificials Tears) BOTH EYES PRN (14:14)
[2024-02-07] MEDS: OLANZapine 5 mg TAB *ODT PO SCH (20:40)
[2024-02-08] MEDS ORDERED: Lubriderm LOTION 180 ML BTL TOPICAL PRN (13:28)
[2024-02-09] MEDS: Lubriderm LOTION 180 ML BTL TOPICAL SCH (10:04)
[2024-02-09] MEDS: Cholecalciferol (VIT D3) 1,000 unit TAB PO SCH (11:01)
[2024-02-09] MEDS: OLANZapine 10 mg TAB*ODT PO SCH (21:26)
[2024-02-13] MEDS: OLANZapine 10 mg TAB*ODT PO SCH (20:04)
[2024-02-14] MEDS: Emollient Lotion 480 ml BTL TOPICAL PRN (23:40)
[2024-02-22 08:31] VITALS: BP 128/82
== END 2024-02-22 13:30 | disposition home or self-care (01) | DRG 885 ==
LOC: ED 04:29 → EDHOLD 11:38 → BSU 11:53
PROVIDERS: ADMIT Psychiatry & Neurology Psychiatry; ATTEND Psychiatry & Neurology Psychiatry